=== PATIENT | female | born 1950 | race Hispanic/Latino ===

== ENCOUNTER 2017-07-06 13:54 | Emergency (ER) | payer MEDICAID ==
[~2017-07-06 13:54] MED LIST: EZET10 PO; GABA-531 PO; LEVO25TA54 PO; LISI10TA7 PO; NAPR250T4 PO; OMEP20TA25 PO; TRAM50TA4 PO
[2017-07-06 14:27] LABS: APPEARANCE,URINE Clear (CLEAR); BILIRUBIN,URINE Negative (NEGATIVE); COLOR,URINE Yellow (YELLOW); GLUCOSE, URINE (UA) Negative (NEGATIVE); KETONES,URINE Negative (NEGATIVE); LEUKOCYTE ESTERASE ,URINE Negative (NEGATIVE); NITRATE,URINE Negative (NEGATIVE); OCCULT BLOOD,URINE Negative (NEGATIVE); PROTEIN,URINE Negative (NEGATIVE); UROBILINOGEN,URINE 0.2 mg/dL (0.2-1.0)
[2017-07-06] MEDS ORDERED: KETOROLAC TROMETHAMINE 60 MG/2 ML VIAL ONE (15:05)
[2017-07-06 15:26] LABS: BASOPHILS % (AUTO) 0.6 % (0.0-5.0); HEMATOCRIT 35.9 % (36-48); LYMPHOCYTES % (AUTO) 25.2 % (21.0-51.0); MEAN CORPUSCULAR HEMOGLOBIN 31.4 pg (27.0-33.0); MEAN CORPUSCULAR HGB CONC 34.3 g/dL (32.0-36.0); MEAN CORPUSCULAR VOLUME 91.4 fL (79-99); MONOCYTES % (AUTO) 7.4 % (3.0-13.0); NEUTROPHILS % (AUTO) 64.8 % (40.0-77.0); PLATELET COUNT (AUTO) 205 K/uL (130-400); RED BLOOD CELL COUNT(AUTO) 3.93 MIL/uL (4.00-5.50); RED CELL DISTRIBUTION WIDTH 15.3 % (11.0-15.5); WHITE BLOOD COUNT (AUTO) 6.2 K/uL (4.8-10.8)
[2017-07-06 15:39] LABS: CARBON DIOXIDE 29 mmol/L (21-32); CHLORIDE 108 mmol/L (101-111); CREATININE 0.6 mg/dL (0.5-1.5); GLOMERULAR FILTR. RATE CALC 107 mL/min (>60); GLUCOSE,RANDOM 116 mg/dL (70-105); INR 0.95 (0.85-1.15); PARTIAL THROMBOPLASTIN TIME 25.3 SEC (26.3-35.5); POTASSIUM 3.5 mmol/L (3.5-5.1); SODIUM SERUM 144 mmol/L (136-145); UREA NITROGEN, BLOOD 12 mg/dL (7-18)
[2017-07-06 15:51] LABS: ALANINE AMINOTRANSFERASE 21 U/L (12-78); ALBUMIN 3.8 g/dL (3.5-5.0); ASPARTATE AMINOTRANSFERASE 17 U/L (10-37); BILIRUBIN,TOTAL 0.5 mg/dL (0.2-1.0); CREATINE KINASE MB < 0.5 ng/mL (0.5-3.6); CREATINE KINASE, TOTAL 46 U/L (21-232); LIPASE 157 U/L (114-286); TOTAL PROTEIN, SERUM 6.7 g/dL (6.0-8.3)
== END 2017-07-06 17:00 | disposition home or self-care (01) ==
LOC: EDH 13:54
DX: G89.29 Other chronic pain (principal); R10.12 Left upper quadrant pain; I10 Essential (primary) hypertension; M06.9 Rheumatoid arthritis, unspecified; Z86.73 Personal history of transient ischemic attack (TIA), and cerebral infarction without residual deficits; Z88.0 Allergy status to penicillin; Z88.5 Allergy status to narcotic agent; Z79.899 Other long term (current) drug therapy
CPT/HCPCS: 36415; 74176; 80053; 81003; 82550; 82553; 83690; 85025; 85610; 85730; 93005; 96372; 99285; J1885

== ENCOUNTER 2018-04-10 17:34 | Inpatient (IN) | payer OTHER, MEDICARE, MEDICAID | END 2018-04-13 13:15 | disposition home or self-care (01) | LOC: EDH 17:34 → EDHIP 17:35 → 3BH 19:45 ==

== ENCOUNTER 2018-04-28 17:36 | Emergency (ER) | payer OTHER, MEDICARE ==
[~2018-04-28 17:36] MED LIST changes: -GABA-531 PO; -LEVO25TA54 PO
[2018-04-28] MEDS ORDERED: ONDANSETRON HCL 4 MG/2 ML VIAL ONE (18:15)
[2018-04-28] MEDS ORDERED: FENTANYL CITRATE PF 50 MCG/1 ML 2ML VIAL ONE (18:16)
[2018-04-28 18:20] LABS: BASOPHILS % (AUTO) 0.7 % (0.0-5.0); EOSINOPHILS % (AUTO) 2.8 % (0.0-8.0); HEMATOCRIT 34.3 % (36-48); LYMPHOCYTES % (AUTO) 12.9 % (21.0-51.0); MEAN CORPUSCULAR HEMOGLOBIN 30.3 pg (27.0-33.0); MEAN CORPUSCULAR HGB CONC 33.4 g/dL (32.0-36.0); MEAN CORPUSCULAR VOLUME 90.7 fL (79-99); MONOCYTES % (AUTO) 4.7 % (3.0-13.0); NEUTROPHILS % (AUTO) 78.9 % (40.0-77.0); PLATELET COUNT (AUTO) 306 K/uL (130-400); RED BLOOD CELL COUNT(AUTO) 3.78 MIL/uL (4.00-5.50); RED CELL DISTRIBUTION WIDTH 15.2 % (11.0-15.5); WHITE BLOOD COUNT (AUTO) 8.3 K/uL (4.8-10.8)
[2018-04-28 18:40] LABS: INR 0.98 (0.85-1.15); PROTHROMBIN TIME 10.3 SEC (9.6-11.6)
[2018-04-28 18:42] LABS: CREATININE 0.7 mg/dL (0.5-1.5); POTASSIUM 3.3 mmol/L (3.5-5.1)
[2018-04-28] MEDS ORDERED: IOHEXOL-350 75 ML VIAL IV ONE (18:45)
[2018-04-28 18:46] LABS: ALBUMIN 3.5 g/dL (3.5-5.0); BILIRUBIN,DIRECT 0.2 mg/dL (0.0-0.3); BILIRUBIN,TOTAL 0.5 mg/dL (0.2-1.0)
[2018-04-28] MEDS ORDERED: LIDOCAINE HCL 2% VISCOUS 15 ML UDCUP ONE (20:52)
[2018-04-28] MEDS ORDERED: MAG HYDROX/AL HYDROX/SIMETH ES 30 ML SUSP UDCUP ONE (20:53)
== END 2018-04-28 21:10 | disposition home or self-care (01) ==
LOC: EDH 17:36
DX: R07.9 Chest pain, unspecified (principal); R11.10 Vomiting, unspecified; R10.13 Epigastric pain; I10 Essential (primary) hypertension; M06.9 Rheumatoid arthritis, unspecified; Z86.73 Personal history of transient ischemic attack (TIA), and cerebral infarction without residual deficits; Z88.6 Allergy status to analgesic agent; Z88.0 Allergy status to penicillin; Z91.012 Allergy to eggs
CPT/HCPCS: 36415; 71045; 74177; 80048; 80076; 82550; 85025; 85610; 85730; 93005; 96361; 96374; 96375; 99284; J2405; J3010; Q9967

== ENCOUNTER 2019-03-04 13:32 | Observation (INO) | payer MEDICARE ==
[~2019-03-04 13:32] MED LIST changes: -EZET10 PO; +EZET10TA13 PO
[2019-03-04 13:56] LABS: BASOPHILS % (AUTO) 0.4 % (0.0-5.0); EOSINOPHILS % (AUTO) 1.6 % (0.0-8.0); HEMATOCRIT 38.2 % (36-48); LYMPHOCYTES % (AUTO) 29.9 % (21.0-51.0); MEAN CORPUSCULAR HEMOGLOBIN 28.7 pg (27.0-33.0); MONOCYTES % (AUTO) 6.7 % (3.0-13.0); NEUTROPHILS % (AUTO) 61.3 % (40.0-77.0); PLATELET COUNT (AUTO) 295 K/uL (130-400); RED BLOOD CELL COUNT(AUTO) 4.39 MIL/uL (4.00-5.50); RED CELL DISTRIBUTION WIDTH 14.6 % (11.0-15.5); WHITE BLOOD COUNT (AUTO) 6.7 K/uL (4.8-10.8)
[2019-03-04 14:06] LABS: CREATININE 0.6 mg/dL (0.5-1.5); POTASSIUM 3.5 mmol/L (3.5-5.1)
[2019-03-04 14:12] LABS: ALBUMIN 3.7 g/dL (3.5-5.0); BILIRUBIN,TOTAL 0.3 mg/dL (0.2-1.0); TOTAL PROTEIN, SERUM 7.5 g/dL (6.0-8.3)
[2019-03-04 14:49] LABS: INR 0.96 (0.85-1.15); PARTIAL THROMBOPLASTIN TIME 25.1 SEC (26.3-35.5); PROTHROMBIN TIME 10.1 SEC (9.6-11.6)
[2019-03-04 14:52] LABS: APPEARANCE,URINE Clear (CLEAR); BILIRUBIN,URINE Negative (NEGATIVE); COLOR,URINE Yellow (YELLOW); GLUCOSE, URINE (UA) Negative (NEGATIVE); KETONES,URINE Negative (NEGATIVE); LEUKOCYTE ESTERASE ,URINE Moderate (NEGATIVE); NITRATE,URINE Negative (NEGATIVE); OCCULT BLOOD,URINE Negative (NEGATIVE); PH,URINE 6.5 (5.0-8.0); PROTEIN,URINE Negative (NEGATIVE); UROBILINOGEN,URINE 0.2 mg/dL (0.2-1.0)
[2019-03-04 14:59] LABS: AMPHET/METH SCREEN,URINE NEGATIVE (NEGATIVE); BARBITURATE SCREEN, URINE NEGATIVE (NEGATIVE); BENZODIAZEPINES SCREEN,URINE NEGATIVE (NEGATIVE); CANNABINOID SCREEN,URINE NEGATIVE (NEGATIVE); COCAINE SCREEN,URINE NEGATIVE (NEGATIVE); OPIATE SCREEN,URINE NEGATIVE (NEGATIVE); PHENCYCLIDINE SCREEN,URINE NEGATIVE (NEGATIVE)
[2019-03-04 15:14] LABS: RBC,URINE None Seen /HPF (0-1)
[2019-03-04 15:15] LABS: BACTERIA,URINE Few /HPF (None Seen); MUCUS,URINE Few LPF (None Seen)
[2019-03-04] MEDS ORDERED: ASPIRIN 325 MG TABLET ONE (15:56)
[2019-03-04] MEDS ORDERED: LEVOFLOXACIN 500 MG/D5W 100 ML 100 ML ONE (15:57)
[2019-03-04] MEDS ORDERED: IOHEXOL-350 75 ML VIAL IV ONE (17:21)
[2019-03-04] MEDS ORDERED: GADODIAMIDE 10 MMOL/20 ML VIAL IV ONE (18:25)
[2019-03-04] MEDS ORDERED: ACET-2743 PO (20:54)
[2019-03-04] MEDS ORDERED: ACETAMINOPHEN EXTRA STRENGTH 500 MG TABLET ONE (20:57)
[2019-03-04] MEDS ORDERED: CLOPIDOGREL BISULFATE 75 MG TAB ONE (20:57)
--- NOTE | 2019-03-04 20:58 | NUR ---
ASSESS ASSESSMENT DONE, PLEASE REFER TO CHART. ADMISSION DATA BASE COMPLETED. DUE MEDS ADMINISTERED, TOLERATED WELL, TYLENOL GIVEN FOR HEADACHE. KEPT RESTED AND COMFORTABLE. WILL RE-ASSESS PT. Addendum: 03/05/19 at 0453 by TOMMY NARANJO RN RN Amended: Links added.
[2019-03-04] MEDS ORDERED: TRAMADOL HCL 50 MG TABLET PO PRN (21:00)
[2019-03-04] MEDS ORDERED: ACETAMINOPHEN EXTRA STRENGTH 500 MG TABLET PO PRN (21:00)
[2019-03-04] MEDS ORDERED: NAPROXEN 250 MG TAB PO SCH (21:00)
[2019-03-04] MEDS ORDERED: NAPROXEN 250 MG TAB PO PRN (21:15)
[2019-03-05] MEDS ORDERED: METHYLPREDNISOLONE SOD SUCC 125MG/2ML VIAL IVP SCH (06:45)
[2019-03-05] MEDS ORDERED: METHYLPREDNISOLONE SOD SUCC 40MG/ML 1ML ONE (07:33)
[2019-03-05] MEDS ORDERED: LISINOPRIL 10 MG TABLET PO SCH (09:00)
[2019-03-05] MEDS ORDERED: CLOPIDOGREL BISULFATE 75 MG TAB PO SCH (09:00)
[2019-03-05] MEDS ORDERED: PANTOPRAZOLE SODIUM 40 MG TABLET.DR PO SCH (09:00)
[2019-03-05] MEDS ORDERED: ASPIRIN 325MG EC TAB 325 MG TABLET.DR PO SCH (09:00)
--- NOTE | 2019-03-05 09:30 | NUR ---
DYSPHAGIA EVAL COMPLETED. -S/S OF ASPIRATION. RECOMMEND REGULAR TEXTURE, THIN LIQUIDS; PILLS WHOLE WITH LIQUIDS. Addendum: 03/05/19 at 1212 by MARK KRUEGER, [facility] Amended: Links added.
--- NOTE | 2019-03-05 09:45 | NUR ---
COGNITIVE-LINGUISTIC EVAL COMPLETED. WITHIN FUNCTIONAL LIMITS. EVALUATION: Pt AAOX3. Pt REQUESTS WANTS AND NEEDS INDEPENDENTLY. Pt INTELLIGIBLE AT 100% ACCURACY TO THE UNFAMILIAR LISTENER. Pt COMMUNICATING AT CONVERSATIONAL LEVEL WITH NO DEFICITS IDENTIFIED AT THIS TIME. Pt COMPLETED COGNITIVE-LINGUISTIC EVALUATION TARGETING: ORIENTATION, ATTENTION/CONCENTRATION, MEMORY (IMMEDIATE, SHORT-TERM AND LONG-TERM), PROBLEM SOLVING, LOGIC/REASONING/INFERENCE, THOUGHT ORGANIZATION. Pt ABLE TO COMPLETE TASKS WITH CORRECT AND TIMELY ANSWERS TO ALL SECTIONS. G-CODES SPOKEN LANGUAGE EXPRESSION: [id number] Addendum: 03/05/19 at 1219 by MARK KRUEGER [facility] Amended: Links added.
--- NOTE | 2019-03-05 13:00 | NUR ---
INITIAL MET W PATIENT IN ER RM [address] [facility] WHO WILL PROIVDE TRANSPORT- PT IS SEMI INDP WITH [facility]; NO HH/PROV SERVICES; HAS A CANE AND WALKER PT HAS HAD THREE STROKES IN PAST; WENT TO BACK TO [facility] THERAPY AND WOULD GO AGAIN IF INDICATED AFTER THIS EVAL, WAS TOLD BY DON THAT PT BEING DCD OUT OF THE ER BY DR. ACOSTA Addendum: 03/05/19 at 1910 by VI MAYER RN Amended: Links added.
== END 2019-03-05 13:47 | disposition home or self-care (01) ==
LOC: EDH 13:32 → EDHIP 16:32
PROVIDERS: ADMIT Internal Medicine; ATTEND Internal Medicine
DX: I63.9 Cerebral infarction, unspecified (principal); I10 Essential (primary) hypertension; M06.9 Rheumatoid arthritis, unspecified; M54.12 Radiculopathy, cervical region; Z86.73 Personal history of transient ischemic attack (TIA), and cerebral infarction without residual deficits; Z90.49 Acquired absence of other specified parts of digestive tract; Z90.710 Acquired absence of both cervix and uterus; Z88.5 Allergy status to narcotic agent; Z88.0 Allergy status to penicillin; Z91.012 Allergy to eggs
CPT/HCPCS: 36415; 70450; 70496; 70498; 70553; 71045; 72141; 80053; 80305; 81001; 82550; 83721; 84484; 85025; 85610; 85730; 92522; 92610; 93005; 93880; 99284; A9579; G0378 ×9; J1956; J2920; Q9967

== ENCOUNTER 2020-02-15 15:52 | Emergency (ER) | payer OTHER, MEDICARE ==
[~2020-02-15 15:52] MED LIST changes: +ACET-2743 PO; -EZET10TA13 PO
[2020-02-15 16:16] LABS: BASOPHILS % (AUTO) 0.5 % (0.0-5.0); EOSINOPHILS % (AUTO) 0.9 % (0.0-8.0); MEAN CORPUSCULAR HEMOGLOBIN 29.9 pg (27.0-33.0); MEAN CORPUSCULAR HGB CONC 33.9 g/dL (32.0-36.0); MONOCYTES % (AUTO) 4.7 % (3.0-13.0); NEUTROPHILS % (AUTO) 79.4 % (40.0-77.0); PLATELET COUNT (AUTO) 275 K/uL (130-400); RED BLOOD CELL COUNT(AUTO) 4.32 MIL/uL (4.00-5.50); WHITE BLOOD COUNT (AUTO) 11.1 K/uL (4.8-10.8)
[2020-02-15 16:25] LABS: CREATININE 0.6 mg/dL (0.5-1.5); POTASSIUM 3.5 mmol/L (3.5-5.1)
[2020-02-15 16:25] LABS: APPEARANCE,URINE Clear (CLEAR); BILIRUBIN,URINE Negative (NEGATIVE); COLOR,URINE Yellow (YELLOW); GLUCOSE, URINE (UA) Negative (NEGATIVE); KETONES,URINE Negative (NEGATIVE); LEUKOCYTE ESTERASE ,URINE Negative (NEGATIVE); NITRATE,URINE Negative (NEGATIVE); OCCULT BLOOD,URINE Trace (NEGATIVE); PH,URINE 5.5 (5.0-8.0); PROTEIN,URINE Negative (NEGATIVE); UROBILINOGEN,URINE 0.2 mg/dL (0.2-1.0)
[2020-02-15] MEDS ORDERED: FAMOTIDINE 20MG TAB 20 MG TAB ONE (16:26)
[2020-02-15] MEDS ORDERED: MAG HYDROX/AL HYDROX/SIMETH ES 30 ML SUSP UDCUP ONE (16:26)
[2020-02-15] MEDS ORDERED: LIDOCAINE HCL 2% VISCOUS 15 ML UDCUP ONE (16:26)
[2020-02-15 16:29] LABS: INR 1.02 (0.85-1.15); PROTHROMBIN TIME 10.9 SEC (9.6-11.6)
[2020-02-15 16:31] LABS: PARTIAL THROMBOPLASTIN TIME 23.9 SEC (26.3-35.5)
[2020-02-15 16:36] LABS: ALBUMIN 3.7 g/dL (3.5-5.0); BILIRUBIN,TOTAL 0.4 mg/dL (0.2-1.0); TOTAL PROTEIN, SERUM 7.5 g/dL (6.0-8.3)
[2020-02-15 16:49] LABS: BACTERIA,URINE Few /HPF (None Seen); MUCUS,URINE Moderate LPF (None Seen); SQUAMOUS EPITHELIAL CELL,UR Few /HPF (0-2)
== END 2020-02-15 18:12 | disposition home or self-care (01) ==
LOC: EDH 15:52
DX: K29.00 Acute gastritis without bleeding (principal); R07.89 Other chest pain; I10 Essential (primary) hypertension; M06.9 Rheumatoid arthritis, unspecified; Z88.6 Allergy status to analgesic agent; Z91.012 Allergy to eggs; Z88.0 Allergy status to penicillin; Z90.710 Acquired absence of both cervix and uterus; Z90.49 Acquired absence of other specified parts of digestive tract; Z86.73 Personal history of transient ischemic attack (TIA), and cerebral infarction without residual deficits
CPT/HCPCS: 36415; 71045; 80053; 81001; 84484; 85025; 85610; 85730; 93005

== ENCOUNTER 2021-08-17 10:46 | Emergency (ER) | payer OTHER, MEDICARE ==
[~2021-08-17] VITALS: Ht 162.6 cm; Wt 67.1 kg
[~2021-08-17 10:46] MED LIST changes: +LISI10TA24 PO; -LISI10TA7 PO; +NAPR-1196 PO; -NAPR250T4 PO; +OMEP20TA20 PO; -OMEP20TA25 PO
[2021-08-17 11:21] LABS: BASOPHILS % (AUTO) 0.8 % (0.0-5.0); EOSINOPHILS % (AUTO) 1.8 % (0.0-8.0); HEMATOCRIT 40.9 % (36-48); LYMPHOCYTES % (AUTO) 28.1 % (21.0-51.0); MEAN CORPUSCULAR HEMOGLOBIN 29.8 pg (27.0-33.0); MEAN CORPUSCULAR HGB CONC 33.7 g/dL (32.0-36.0); MEAN CORPUSCULAR VOLUME 88.3 fL (79-99); MONOCYTES % (AUTO) 6.2 % (3.0-13.0); NEUTROPHILS % (AUTO) 62.7 % (40.0-77.0); PLATELET COUNT (AUTO) 285 K/uL (130-400); RED BLOOD CELL COUNT(AUTO) 4.63 MIL/uL (4.00-5.50); RED CELL DISTRIBUTION WIDTH 13.5 % (11.0-15.5); WHITE BLOOD COUNT (AUTO) 7.6 K/uL (4.8-10.8)
[2021-08-17 11:23] LABS: APPEARANCE,URINE CLEAR (CLEAR); BILIRUBIN,URINE NEGATIVE (NEGATIVE); COLOR,URINE YELLOW (YELLOW); GLUCOSE, URINE (UA) NEGATIVE (NEGATIVE); KETONES,URINE NEGATIVE (NEGATIVE); LEUKOCYTE ESTERASE ,URINE TRACE (NEGATIVE); NITRATE,URINE NEGATIVE (NEGATIVE); OCCULT BLOOD,URINE TRACE-LYSED (NEGATIVE); PROTEIN,URINE NEGATIVE (NEGATIVE); UROBILINOGEN,URINE 0.2 mg/dL (0.2-1.0)
[2021-08-17 11:34] LABS: CREATININE 0.7 mg/dL (0.5-1.5); POTASSIUM 3.5 mmol/L (3.5-5.1)
[2021-08-17 11:39] LABS: ALBUMIN 3.8 g/dL (3.5-5.0); BILIRUBIN,TOTAL 0.4 mg/dL (0.2-1.0); TOTAL PROTEIN, SERUM 7.8 g/dL (6.0-8.3)
[2021-08-17 11:52] LABS: BACTERIA,URINE Rare /HPF (None Seen); MUCUS,URINE Rare LPF (None Seen); RBC,URINE 0-1 /HPF (0-1); SQUAMOUS EPITHELIAL CELL,UR Rare /HPF (0-2); WBC,URINE 0-1 /HPF (0-1)
[2021-08-17 13:10] VITALS: BP 130/59
[2021-08-17] MEDS ORDERED: DICL100G61 TP (13:23)
== END 2021-08-17 13:48 | disposition home or self-care (01) ==
LOC: EDH 10:46
DX: G44.209 Tension-type headache, unspecified, not intractable (principal); Z20.822 Contact with and (suspected) exposure to COVID-19; I10 Essential (primary) hypertension; M06.9 Rheumatoid arthritis, unspecified; Z88.0 Allergy status to penicillin; Z88.5 Allergy status to narcotic agent; Z79.1 Long term (current) use of non-steroidal anti-inflammatories (NSAID); Z90.49 Acquired absence of other specified parts of digestive tract
CPT/HCPCS: 36415; 70450; 80053; 81001; 84484; 85025; 87635; 93005; 99285; C9803

== ENCOUNTER 2024-05-22 17:20 | Emergency (ER) | payer MEDICARE, OTHER ==
[~2024-05-22] VITALS: Ht 157.5 cm; Wt 61.2 kg
[~2024-05-22 17:20] MED LIST changes: +ATOR40TA71 PO; +CHOL4POW4 PO; +DICL100G61 TP; +FLUT16H EN; -LISI10TA24 PO; -NAPR-1196 PO; -OMEP20TA20 PO; +SUCR1TAB PO
--- NOTE | 2024-05-22 17:42 | ERN ---
General Chief Complaint: Hip Pain/Injury Stated Complaint: FEET AND VAGINAL PAIN Time Seen by MD: 17:29 Time Seen by Midlevel: 17:29 Source: patient History of Present Illness Initial Comments 73-year-old female with history of fibromyalgia presents to the emergency department due to right hip pain. Patient states she used to take ibuprofen and tramadol at home but was discontinued by PCP. Patient states pain initiated two weeks ago but has been worsening since yesterday to the right lower extremity. Denies any injuries, trauma or further associated symptoms. Allergies: Coded Allergies: Penicillins (Unverified Allergy, Unknown, 10/18/14) codeine (Unverified Allergy, Unknown, 10/18/14) Home Meds Active Scripts Lidocaine (Lidocaine Pain Relief) 4 % Adh..patch, 1 PATCH TP DAILY for 5 Days, #5 PATCH 0 Refills Prov:SKYE JASON 05/22/24 Diclofenac Sodium (Arthritis Pain) 100 Gm Gel..gram., 100 GM TP BID PRN for pain for 10 Days, #60 TUBE Prov:REJI CAMP MD 08/17/21 Reported Medications Atorvastatin Calcium (Atorvastatin Calcium) 40 Mg Tablet, 1 TAB PO DAILY 08/21/22 Fluticasone Propionate (Flonase Nasal [place]) 50 Mcg/[place], 1 SPRY EN DAILY 08/21/22 Sucralfate (Carafate) 1 Gm Tablet, 1 TAB PO QID 08/21/22 Cholestyramine (with Sugar) (Cholestyramine Packet) 4 Gm Powd.pack, 1 PKT PO BID 08/21/22 Acetaminophen (Tylenol Extra Strength) 500 Mg Tablet, 500 MG PO q6h PRN for FEVER/HEADACHE, TAB 03/04/19 Tramadol Hcl (Tramadol HCl) 50 Mg Tablet, 50 MG PO DAILY PRN for PAIN LEVEL 1 TO 5, TAB 04/11/18 Past Medical History Past Medical History: No Pertinent History Medical History Other: RHEUMATOID ARTHRITIS, HTN Past Surgical History: Appendectomy, Hysterectomy, Cholecystectomy Social History Social History: Negative, Lives with family ROS Dictation Constitutional: Negative for fever,chills, and weight loss Eyes: Negative for injury, pain,redness, and discharge ENT: Negative for injury,pain or swelling Cardiovascular: Negative for chest pain, palpitations, and edema Respiratory: Negative for shortness of breath, cough, and wheezing, Abdomen/GI: Negative for abdominal pain, nausea, vomiting, diarrhea, and constipation Back: Negative for injury and pain : Negative for painful urination, bleeding or discharge MS/Extremity: Positive for right leg pain Negative for injury and deformity Skin: Negative for rash, and discoloration Neuro: Negative for headache, weakness, numbness, tingling, and seizure Psych: Negative for suicide ideation, homicidal ideation, and hallucinations Physical Exam Physical Exam Dictation General: awake, alert, no acute distress Head/Face: Normocephalic, atraumatic Eyes: PERRL, EOMI, normal conjunctiva ENT: oral cavity clear, oral mucosa moist Neck: Supple, normal range of motion Cardiovascular: RRR, normal S1/S2 Respiratory: CTAB, no respiratory distress Skin: Warm, dry, normal turgor, no rash MS/Extremity: Pulses equal, no cyanosis, neurovascular intact, FROM. Generalized tenderness to the right lower extremity, no obvious deformities, no ecchymosis, no erythema Neuro: COAx4, GCS 15, strength 5/5, CN 2-12 intact, normal cerebellar exam, normal gait uses cane Psych: Normal behavior, mood, and affect normal Results EKG/XRAY/US/CT/MRI X-RAY Comment REASON: Pain ORDERING PHYSICIAN: SKYE JASON PROCEDURE: HIP U 4V R - HIP UNILAT 4VW RIGHT RIGHT HIP, INCLUDING AP PELVIS, RADIOGRAPHS - 3 VIEWS INDICATION: Pain COMPARISON: None FINDINGS: AP and abduction views of the right hip and single AP view of the pelvis. No acute fracture or subluxation identified. Both femoral heads are well formed without osteochondral erosion or radiographic evidence for avascular necrosis. No radiopaque foreign body noted. IMPRESSION: No evidence for fracture or dislocation. DICTATED BY: JERE BRAVO MD DATE: 05/22/241853 [facility] MDM: Differential diagnosis: Fractures, dislocation, fibromyalgia exacerbation, musculoskeletal pain Rationale: 73-year-old female with history of fibromyalgia presents to the emergency department due to right hip pain. Patient states she used to take ibuprofen and tramadol at home but was discontinued by PCP. Patient states pain initiated two weeks ago but has been worsening since yesterday to the right lower extremity. Denies any injuries, trauma or further associated symptoms. Per physical examination patient is in no acute distress, generalized tenderness to the right lower extremity, no obvious deformities, no ecchymosis, no erythema. X-rays of the right hip, pelvis, right knee obtained with no indications of fractures, or dislocations. Venous Doppler obtained with no evidence of DVT. Patient was administered ketorolac in the ED on re-examination verbalized the pain improved but not completely resolved. Tramadol was then administered, patient able to walk in the emergency department using a cane, pain resolved. The patient was educated on findings and diagnosis. Advised to follow up with PCP. Return to the emergency department if any worsening symptoms. Patient verbalized understanding. Patient stable for discharge. There are no social concerns with this patient. I independently interpreted the test that were performed, results were reviewed by me and considered findings on radiology if ordered. Medical management and examination interpretation discussions were had by me with other qualified healthcare professionals as indicated for the patient's care. ED Course Orders Procedure Category Date Status Time Hip Unilat 4vw Right RAD 05/22/24 Resulted 17:35 Ketorolac PHA 05/22/24 Complete Tromethamine 15mg/Ml 18:00 Us Venous Doppler US 05/22/24 Resulted Unilateral 17:45 Knee 3vws Rt RAD 05/22/24 Resulted 17:45 Tramadol Hcl (Ultram) PHA 05/22/24 Complete 20:00 Current Medications Medications (Trade) Dose Ordered Sig/Alpa Route PRN Reason Start Time Stop Time Status Last Admin Dose Admin Ketorolac Tromethamine (toRADol) 15 mg ONCE ONCE IM 05/22/24 18:00 05/22/24 18:01 DC 05/22/24 17:50 Tramadol HCl (UltRAM) 50 mg ONCE ONCE PO 05/22/24 20:00 05/22/24 20:01 DC 05/22/24 19:57 Vital Signs Date Time Temp Pulse Resp B/P (MAP) Pulse Ox O2 Delivery O2 Flow Rate FiO2 05/22/24 20:15 98.1 72 18 158/87 99 Room Air* 0 21 05/22/24 17:38 97.5 70 20 165/90 100 Room Air* 0 21 05/22/24 17:28 97.5 70 20 165/90 100 Room Air 0 DX & DISP Disposition: Discharge Departure Impression: Primary Impression: Musculoskeletal pain of left lower extremity Condition: Stable Scripts Lidocaine (Lidocaine Pain Relief) 4 % Adh..patch 1 PATCH TP DAILY for 5 Days, #5 PATCH 0 Refills Prov: SKYE JASON 05/22/24 Additional Instructions: Discharge home. Rest. Follow up with primary care DrJabari in 24 hours. Return to the ER for any acute changes or worsening symptoms. If any medications were prescribed take as directed. Okay to continue home medications unless otherwise discussed during your visit in the emergency room today. Patient was also advised to follow-up with primary care physician in 1 to 2 days for continued monitoring. Referrals: DAXA ACOSTA MD (PCP) I performed the substantive portion of the visit. I have reviewed and personally made and approve the management plan that is documented in the notes by myself or the HARMONY. I acknowledge full responsibility for the patient's management plan. SKYE JASON May 22, 2024 17:42
[2024-05-22] MEDS: ketOROlac 15MG/ML VIAL (15MG/ML) IM ONE (17:50)
--- NOTE | 2024-05-22 18:57 | HMCIMG ---
RIGHT HIP, INCLUDING AP PELVIS, RADIOGRAPHS - 3 VIEWS INDICATION: Pain COMPARISON: None FINDINGS: AP and abduction views of the right hip and single AP view of the pelvis. No acute fracture or subluxation identified. Both femoral heads are well formed without osteochondral erosion or radiographic evidence for avascular necrosis. No radiopaque foreign body noted. IMPRESSION: No evidence for fracture or dislocation.
--- NOTE | 2024-05-22 18:57 | HMCIMG ---
RIGHT KNEE RADIOGRAPHS - 3 VIEWS INDICATION: Pain COMPARISON: None FINDINGS: AP, lateral, and oblique views. No acute fracture or dislocation identified. No significant joint effusion is present. Overlying soft tissues appear normal. IMPRESSION: No evidence for fracture or dislocation.
--- NOTE | 2024-05-22 19:48 | HMCIMG ---
Exam Type: US VENOUS DOPPLER UNILATERAL Clinical Information: R/O DVT Comparison: None Findings: The examination shows normal deep venous system. There is normal compressibility at all levels. There is no intraluminal clot. There is no occlusion. Adequate response is obtained on augmentation. Impression: No evidence of DVT.
[2024-05-22] MEDS ORDERED: LIDO1ADH71 TP (19:51)
[2024-05-22] MEDS: traMADol HCL 50 MG TABLET PO ONE (19:57)
[2024-05-22 20:15] VITALS: BP 158/87; PULSE 72; RESP 18; TEMP 98.1; O2SAT 99
== END 2024-05-22 20:16 | disposition home or self-care (01) ==
LOC: EDH 17:20
DX: M79.605 Pain in left leg (principal); I10 Essential (primary) hypertension; M06.9 Rheumatoid arthritis, unspecified; M79.7 Fibromyalgia; Z79.899 Other long term (current) drug therapy; Z88.0 Allergy status to penicillin; Z88.5 Allergy status to narcotic agent; Z90.49 Acquired absence of other specified parts of digestive tract; Z90.710 Acquired absence of both cervix and uterus
CPT/HCPCS: 99285; 93971; 73503; 73562; 96372; J1885